=== PATIENT | male | born 1980 | race Caucasian/White ===

== ENCOUNTER 2023-06-24 15:10 | Outpatient (CLI) | payer BC, SELFPAY | END 2023-06-24 15:11 | disposition home or self-care (01) | PROVIDERS: PCP Internal Medicine; Visit Provider Internal Medicine | DX: Z13.220 Encounter for screening for lipoid disorders (principal); Z13.228 Encounter for screening for other metabolic disorders | CPT/HCPCS: 80053; 80061 ==